=== PATIENT | male | born 1945 | race Caucasian/White ===

== ENCOUNTER → 2016-07-23 | Outpatient (CLI) | payer OTHER ==
[2016-07-23 10:09] LABS: ALT/SGPT 26 U/L (12-78); BLOOD UREA NITROGEN 16 mg/dl (7-18); BUN/CREATININE RATIO 17.2 (10-20); CARBON DIOXIDE 26 mmol/L (21-32); CHLORIDE 105 mmol/L (98-107); CHOLESTEROL 196 mg/dl (0-200); CREATININE 0.94 mg/dl (0.60-1.40); GLUCOSE 100 mg/dl (70-99); POTASSIUM 4.1 mmol/L (3.5-5.1); SODIUM 139 mmol/L (136-145); TRIGLYCERIDES 98 mg/dl (0-150); VERY LOW DENSITY LIPOPROT CALC 20 mg/dl
[2016-07-23 10:12] LABS: ALB/GLOB RATIO 1.1 (0.9-2); ALKALINE PHOSPHATASE 50 U/L (45-117); AST/SGOT 19 U/L (15-37); CHOLESTEROL/HDL RATIO 2.6; HDL CHOLESTEROL 74 mg/dl; LDL CHOLESTEROL CALCULATED 102 mg/dl
[2016-07-23 10:31] LABS: CALCIUM 9.6 mg/dl (8.5-10.1)
== END | disposition home or self-care (01) ==
LOC: C.LAB1850 08:33
PROVIDERS: ATTEND Internal Medicine
DX: R73.9 Hyperglycemia, unspecified (principal); E78.5 Hyperlipidemia, unspecified

== ENCOUNTER → 2017-01-22 | Outpatient (CLI) | payer OTHER, BC ==
[2017-01-22 11:04] LABS: ALT/SGPT 27 U/L (12-78); AST/SGOT 13 U/L (15-37); BLOOD UREA NITROGEN 16 mg/dl (7-18); BUN/CREATININE RATIO 18.2 (10-20); CALCIUM 8.5 mg/dl (8.5-10.1); CARBON DIOXIDE 29 mmol/L (21-32); CHLORIDE 104 mmol/L (98-107); CREATININE 0.86 mg/dl (0.60-1.40); GLUCOSE 100 mg/dl (70-99); POTASSIUM 3.9 mmol/L (3.5-5.1); SODIUM 135 mmol/L (136-145)
[2017-01-22 11:08] LABS: CHOLESTEROL 190 mg/dl (0-200); CHOLESTEROL/HDL RATIO 2.5; HDL CHOLESTEROL 77 mg/dl; LDL CHOLESTEROL CALCULATED 91 mg/dl; TRIGLYCERIDES 108 mg/dl (0-150); VERY LOW DENSITY LIPOPROT CALC 22 mg/dl
== END | disposition home or self-care (01) ==
LOC: C.LAB1850 09:35
PROVIDERS: ATTEND Internal Medicine
DX: Z00.00 Encounter for general adult medical examination without abnormal findings (principal); Z11.59 Encounter for screening for other viral diseases; E78.5 Hyperlipidemia, unspecified; I10 Essential (primary) hypertension; Z12.5 Encounter for screening for malignant neoplasm of prostate

== ENCOUNTER 2024-05-24 05:56 | Inpatient (IN) ==
--- NOTE | 2024-05-13 12:52 | Anesthesiology Consultation ---
Date of Service May 13, 2024 Assessment & Plan (1) Encounter for pre-operative examination: - Infectious disease screening: Per assessment on 05/13/24- No known recent infectious disease contacts or current infectious disease symptoms. - Preop testing: No recent/preop testing received. Will order CBC/BMP for DOS. Chart Review Chart Review: Acceptable Risk for Surgery (pending preop labs DOS) and Patient NOT seen in Pre Admission Testing History Surgery Operation Date: 05/24/24 07:30 Proposed Procedures p Robotic Navigational Bronchoscopy, - Isaak Short MD s Endobronchial Ultrasound - Isaak Short MD Height/Weight Height: 5 ft 8 in Weight: 61.235 kg Allergies Allergy/AdvReac Type Severity Reaction Status Date / Time house dust mite Allergy Mild Seasonal Verified 05/13/24 12:53 tree and shrub pollen Allergy Mild Seasonal Verified 05/13/24 12:53 wool Allergy Mild Nose runs Verified 05/13/24 12:53 Medications Home Medications Medication Instructions Recorded Confirmed Last Taken cholecalciferol (vitamin D3) 50 50 mcg PO QPM 09/05/20 05/13/24 09/08/21 mcg (2,000 unit) capsule Medical Marijuana 1 inh inhalation UD PRN hs 08/23/21 05/13/24 08/26/21 cyanocobalamin (vitamin B-12) 1,000 mcg PO QPM 09/02/21 05/13/24 09/08/21 1,000 mcg tablet omeprazole 20 mg capsule,delayed 20 mg PO QPM 09/02/21 05/13/24 09/08/21 release nitroglycerin 2 % transdermal 1 inch transdermal BID PRN pain 02/10/22 05/13/24 Unknown ointment toe #30 grams omega-3 fatty acids 1,000 mg 1,000 mg PO QAM 04/22/23 05/13/24 Unknown capsule psyllium husk 3.4 gram/5.4 gram 2 tsp PO DAILY 04/22/23 05/13/24 Unknown oral powder (Metamucil) naproxen 500 mg tablet 500 mg PO BID PRN pain #60 tabs 05/20/23 05/13/24 Unknown simvastatin 40 mg tablet 40 mg PO HS #90 tabs 06/08/23 05/13/24 Unknown aspirin 81 mg capsule 81 mg PO QAM 09/29/23 05/13/24 Unknown metronidazole 0.75 % topical cream 1 applic topical BID 01/28/24 05/13/24 Unknown amlodipine 2.5 mg tablet 2.5 mg PO QAM #90 tabs 02/15/24 05/13/24 Unknown fluticasone propionate 50 1 spray intranasal BID #18.2 mL 05/03/24 05/13/24 Unknown mcg/actuation nasal spray,suspension (Flonase Allergy Relief) levocetirizine 5 mg tablet (Xyzal) 5 mg PO QPM 05/13/24 05/13/24 Unknown pseudoephedrine HCl 60 mg tablet 60 mg PO Q6H PRN Cold Symptoms 05/13/24 05/13/24 Unknown Past Medical History Medical History Compression fracture of thoracic vertebra Lumbar MRI 09/2023: Redemonstration of the subacute compression fracture at T12 as described above Elevated PSA GERD (gastroesophageal reflux disease) History of prostate cancer s/p radiation tx Hyperlipidemia Hypertension Insomnia reason for medical marijuana Lung nodule reason for procedure Medical marijuana use Nasal drainage "chronic" Peripheral neuropathy Restless leg syndrome Past Family History Family History Aunt Colon cancer Brother Coronary heart disease Myocardial infarction Mother Family history of diabetes mellitus Coronary heart disease Father Coronary heart disease Brother Cancer Prostate Cancer Other No family history of adverse response to anesthesia Denies family history of Ovarian cancer Prostate cancer Breast cancer Past Surgical History Surgical History H/O prostate biopsy H/O: vasectomy History of carpal tunnel release right History of colonoscopy History of nasal cauterization as child Hx of tonsillectomy [place] teeth extracted Social History Smoking Status: Former smoker Do You Dip or Chew Tobacco: No Smoking End Date: "in my 30's" Hx Alcohol Use: Yes Alcohol type: beer and wine alcohol intake frequency: 0-2 drinks per day Alcohol Intake Frequency Comment: 3 pints of beer daily Hx Substance Use: Yes substance use type: marijuana (medical card) Testing Electrocardiogram Date: 08/03/23 SR with first degree AVB with PACs at 79bpm. "Otherwise normal ECG" Other Testing Chest CT Date: 04/25/24 IMPRESSION: 1. Emphysema with slightly increased size of the two suspicious pulmonary nodules involving the upper lobes, largest of which now measures 1.3 cm. Primary bronchogenic malignancies remains the primary differential consideration. 2. No lymphadenopathy.
[2024-05-24] MEDS ORDERED: NALOXONE HCL 0.4 MG/1 ML VIAL/CARP IV PRN (06:46)
[2024-05-24] MEDS ORDERED: PROMETHAZINE HCL 6.25 MG in SODIUM CHLORIDE 0.9% 50 ML IV PRN (06:46)
[2024-05-24] MEDS ORDERED: fentaNYL citrate PF 100 MCG/2 ML VIAL IV PRN (06:46)
[2024-05-24] MEDS ORDERED: FLUMAZENIL 0.1 MG/1 ML 10 ML VIAL IV PRN (06:46)
[2024-05-24] MEDS ORDERED: LABETALOL HCL IV 5 MG/ML 20ML IV PRN (06:46)
[2024-05-24] MEDS ORDERED: ATROPINE SULFATE 0.1 MG/ML 10ML SYR IV PRN (06:46)
[2024-05-24] MEDS ORDERED: ePHEDrine sulfate 50 MG/ML AMP IV PRN (06:46)
[2024-05-24] MEDS ORDERED: ONDANSETRON INJ 2 MG/ML 2 ML VIAL IV PRN ×2 (06:46→12:37)
[2024-05-24 06:47] LABS: Basophils # (auto) 0.05 K/uL (0.00-0.20); Basophils % (auto) 0.6 %; Eosinophils # (auto) 0.07 K/uL (0.00-0.50); Eosinophils % (auto) 0.8 %; Hematocrit (blood only) 45.3 % (42.0-52.0); Hemoglobin 15.2 g/dl (14.0-18.0); Immature Granulocytes # (auto) 0.04 K/uL (0.01-0.20); Immature Granulocytes % (auto) 0.4 %; Lymphocytes # (auto) 1.61 K/uL (1.20-3.40); Lymphocytes % (auto) 18.1 %; Mean Corpuscular Hemoglobin 32.1 pg (25.0-34.0); Mean Corpuscular Hgb Conc 33.6 g/dL (32.0-36.0); Mean Corpuscular Volume 95.6 fL (80.0-100.0); Mean Platelet Volume 9.3 fL (9.4-12.4); Monocytes # (auto) 0.63 K/uL (0.11-0.59); Monocytes % (auto) 7.1 %; Platelet Count 319 K/uL (130-400); RDW Coefficient of Variation 12.1 % (11.5-14.5); RDW Standard Deviation 42.9 fL (36.4-46.3); Red Blood Count 4.74 M/uL (4.70-6.10)
--- NOTE | 2024-05-24 06:53 | History & Physical Bridge Note ---
Date of Service May 24, 2024 History & Physical Bridge Note I have examined the patient, reviewed the History & Physical and in the interval since the performance of the History & Physical I have noted the following changes of clinical significance: no changes noted
[2024-05-24 07:02] LABS: BUN Creatinine Ratio 18.4 (10-20); Calcium 9.1 mg/dl (8.6-10.3); Creatinine Clr Calc Pharmacy 69.5 ml/min; Potassium 3.9 mmol/L (3.5-5.1)
[2024-05-24] MEDS ORDERED: PROPOFOL IV EMULSION 10 MG/ML 20 ML VIAL IV ONE ×2 (07:02→08:54)
[2024-05-24] MEDS ORDERED: fentaNYL citrate PF 100 MCG/2 ML VIAL ONE (07:04)
[2024-05-24] MEDS ORDERED: MIDAZOLAM HCL 1 MG/ML 2ML VIAL ONE (07:05)
[2024-05-24] MEDS: LACTATED RINGER'S 1,000 ML IV SCH (07:06)
[2024-05-24] MEDS ORDERED: CISATRACURIUM BESYLATE IV SOLN 2 MG/ML 10 ML VIAL IV ONE (07:09)
[2024-05-24] MEDS ORDERED: PHENYLEPHRINE 100MCG/ML 5ML SYR ONE (08:54)
[2024-05-24] MEDS ORDERED: ePHEDrine sulfate 50 MG/5 ML SYR ONE (08:54)
[2024-05-24] MEDS ORDERED: GLYCOPYRROLATE 0.2 MG/ML VIAL ONE (09:54)
[2024-05-24] MEDS ORDERED: NEOSTIGMINE METHYLSULFATE 1 MG/ML 10ML VIAL ONE (09:54)
--- NOTE | 2024-05-24 10:11 | Procedure Note ---
Procedure Note Date of Service May 24, 2024 Procedure: Fiberoptic bronchoscopy Electromagnetic navigational bronchoscopy with fluoroscopic guidance Electromagnetic navigational bronchoscopy with transbronchial biopsies under fluoroscopic guidance, 2 nodules Electromagnetic navigational bronchoscopy with fine-needle aspiration under fluoroscopic guidance, 2 nodules Provider: Isaak Short MD Indication: Enlarging pulmonary nodules in a patient with history of prostate cancer Consent: Signed by patient and timeout verified prior to procedure. Procedure: Patient was brought to the OR suite. Consent was verified. Appropriate radiographic studies had been reviewed prior to the procedure. General anesthesia was initiated by the anesthesia team and the patient was intubated with an 8.0 endotracheal tube. After initiation of general anesthesia, the fiberoptic scope was advanced through the existing endotracheal tube via the adapter. The tube was sounded. It was withdrawn to approximately 5 or 6 cm above the arleen and secured in place. A systematic inspection of the airways was then conducted. The right tracheobronchial tree was normal in anatomic configuration with normal mucosa. Left tracheobronchial tree also demonstrated a normal anatomic configuration with normal mucosa. No endobronchial lesions were identified. The fiberoptic scope was then removed. The robotic adapter was then secured to the endotracheal tube and secured using the flexible arm attached to the bed. The patient had previously been placed on a bed with an electromagnetic navigation field and a tilt table in place. The robot was advanced to the head of the bed and the robotic arm was docked to the endotracheal tube via the robotic adapter. Robot arm was withdrawn in normal fashion and the scope attached with the antibuckling device. The robotic scope was then maneuvered into the endotracheal tube where controller registration took place. Once that was confirmed the scope was advanced to the main arleen and verified in good position. Navigational registration was then conducted without difficulty. Once registration was completed, the robotic bronchoscope was used to navigate to the left upper lobe pulmonary nodule. Once the scope was approximately 30 mm from the lesion, a fluoroscopic tomographic spin was conducted with reconstruction of images. The lesion was able to be verified on the tomogram. It was marked and additional navigation was conducted under direct fluoroscopic guidance with augmented fluoroscopy. Once the scope was appropriately angled towards the lesion, under direct fluoroscopic guidance, the radial ultrasound probe was advanced through the scope. An eccentric view was identified. Radial probe was removed and a 21-gauge JORDAN view needle was advanced through the scope and directed to the lesion using augmented fluoroscopy. With the needle extended, a repeat tomographic spin was conducted confirming the tip of the tool to be within the lesion. 2 needle biopsies were undertaken. We then transition to forceps biopsies and a total of 6 biopsies were taken. 3 cryobiopsies were also taken. Rapid onsite cytologic evaluation did identify one cluster of abnormal cells. Decision was made to proceed to the right upper lobe lesion. The scope was na vigated to the lesion using electromagnetic navigational capabilities. This lesion was very difficult as the angle from the airway was quite acute. Multiple manipulations of the scope were required to try and get an appropriate view. The lesion was identified on tomographic spin and marked. A JORDAN view needle was unable to be advanced and we transition to an arc point needle which we were able to enter the lesion. 2 needle passes were taken. Rapid onsite cytologic evaluation demonstrated no significant concerning cells. We transitioned then to cryobiopsy and a total of 3 biopsies were taken of that lesion. Rapid onsite cytologic evaluation did not show any significant malignant cells. Await final pathology. The scope was then withdrawn to the tip of the endotracheal tube and hemostasis was confirmed. Scope was removed from the airway. The patient was turned over to anesthesia for extubation and returned to the PACU having tolerated the procedure well without complication. EBL: Less than 10 ml Impression: 1. Normal inspection bronchoscopy. 2. Successful electromagnetic robotic navigation to both a 10 mm left upper lobe and 12 mm right upper lobe pulmonary nodule status post FNA biopsy/cryobiopsy. Await final path [facility] [place] Procedure Codes (Charges) Pulmonary/Thoracic Procedure 1: Pulmonary and Thoracic: 73336 Navigational Bronchoscopy Procedure 2: Pulmonary and Thoracic: 75293 Bronchoscopy w/ needle bx Procedure 3: Pulmonary and Thoracic: 28933 Bronch w needle bx add'l lobe Procedure 4: Pulmonary and Thoracic: 12547 Bronchoscopy w/ transbronchial lung bx Procedure 5: Pulmonary and Thoracic: 09531 Bronchoscopy w/ transbronchial lung bx add'l lobe Coding CPT Codes Pulmonary/Thoracic - Pulmonary and Thoracic: 23699 Navigational Bronchoscopy ([id number]) Pulmonary/Thoracic - Pulmonary and Thoracic: 90039 Bronchoscopy w/ needle bx ([id number]) Pulmonary/Thoracic - Pulmonary and Thoracic: 68116 Bronch w needle bx add'l lobe ([id number]) Pulmonary/Thoracic - Pulmonary and Thoracic: 97927 Bronchoscopy w/ transbronchial lung bx ([id number]) Pulmonary/Thoracic - Pulmonary and Thoracic: 49062 Bronchoscopy w/ transbronchial lung bx add'l lobe ([id number]) Additional Codes Date of Service ([facility].SURGERY)
--- NOTE | 2024-05-24 10:39 | XRay Report ---
XR chest 1V portable HISTORY: 78 years-old Male Post Bronchoscopy COMPARISON: PET/CT 05/17/2024 TECHNIQUE: AP view of the chest FINDINGS: Large left-sided pneumothorax, apical pleural separation of 8 cm. Skinfold projects over the right tim ng apex. Heart is mildly enlarged. Bilateral mixed interstitial and alveolar opacities are noted. No pleural effusion or overt pulmonary edema. Chronic right-sided rib fracture. IMPRESSION: 1. Large left-sided pneumothorax with 8 cm pleural separation. No definite midline shift. 2. Nonspecific bilateral mixed interstitial and alveolar opacities. This was made as a call report at time of dictation. ACT 112: Negative or not required by law. The above report was generated using voice recognition software. It may contain grammatical, syntax o r spelling errors. Electronically signed by: Aries Walker M.D. 05/24/2024 10:38 AM
[2024-05-24] MEDS ORDERED: KETOROLAC TROMETHAMINE 15 MG/ML VIAL IV PRN (10:49)
--- NOTE | 2024-05-24 11:24 | History & Physical Report ---
Date of Service May 24, 2024 Assessment & Plan (1) Pneumothorax, left: Plan: Colby is a 78-year-old male with a past medical history of a pulmonary nodule for which he presented for bronchoscopy and biopsy, hypertension/hyperlipidemia without history of CAD/CVA/CHF, no history of renal disease, prostate cancer s/p radiation on medical marijuana for some residual discomfort but without recurrent LUTS symptoms, GERD,who is admitted for L pneumothorax post bronch/b iopsy. Left-sided pneumothorax Post bronchoscopy/biopsy. CXR 8 cm pleural separation without midline shift Post chest tube placement is with reexpansion of left lung with tiny residual pneumothorax, pleural catheter in place. Suction versus waterseal per pulmonar No airleak on tidal volumes, slight air leak on cough Admitted for monitoring overnight. Multimodal pain control, Tylenol, Toradol, morphine for breakthrough SpO2 greater than 90% on 2 L nasal cannula Pulmonology following 2 mm left upper lobe, 12 mm right upper lobe pulmonary nodules S/p bronchoscopy and FNA biopsy Pathology pending Pulmonary following Hypertension Home antihypertensives continued Aspirin held post chest tube placement and biopsies. He is on this for primary prevention without history of CAD/CVA History of prostate cancer s/p radiation Bladder scan as needed No acute change in symptoms, no recent LUTS Hyperlipidemia Continue statin DVT prophylaxis: SCDs, if no bleeding complications after 12-24 hours start chemical prophylaxis Diet: Swallow eval postanesthesia, if doing well may advance to heart healthy CODE STATUS: Full code Disposition: M/T (2) Hyperlipidemia: (3) Hyperglycemia: (4) Gastroesophageal reflux disease: History of Present Illness Primary Care Provider: Gary Wells MD Colby is a 78-year-old male with a past medical history of a pulmonary nodule for which he presented for bronchoscopy and biopsy, hypertension/hyperlipidemia without history of CAD/CVA/CHF, no history of renal disease, prostate cancer s/p radiation on medical marijuana for some residual discomfort but without recurrent LUTS symptoms, GERD,who is admitted for L pneumothorax. Seen in PACU. s/p robotic bronchoscopy and nodule biopsy. Admitted for monitoring post chest tube placement for associated left sided pneumo. At bedside recovering well from anesthesia. He reports he has some slight pain at the chest tube site noticeable slightly with deep inspiration but otherwise pain is well-controlled. No anterior chest pain. No preceding chest pain prior to his procedure. Denies fever chills or sweats. He endorses some minimal dyspnea but notes this is more a feeling of discomfort from the pain when taking a deep breath. He is not dyspneic with normal breaths. No lightheadedness or dizziness. No abdominal pain. Has a slight cough nonproductive and denies hemoptysis. Meds: - Amlodipine, took this AM - Simvastatin for cholesterol - Xyzal for allergies - Aspirin 81mg, did not take this morning. Takes this for primary prevention. No history of VT or CVA. No history of VT, DM2, CKD, CVA Denies medication allergies No tobacco use currently. Former smoker in 20-30s. 1ppd ~10 years total Medical marijuana use. No recreational drug use Hx prostate cancer post radiation. No difficulty with retention. Uses medical marijuana since which works well for minimal discomfort Intermittent hyperglycemia with last A1c 5.4% and no history of DM presented for bronchoscopy and was admitted for observation following a left sided pneumothorax. Surrogate DM: Jacki Willson) Sarina [phone] CODE STATUS: Full Code. Discussed w/ pt at bedside in PACU. Reports would not want prolonged intubation past 7 days if no signs of significant recovery or return of ability to communicate. Allergies Allergy/AdvReac Type Severity Reaction Status Date / Time house dust mite Allergy Mild Seasonal Verified 05/24/24 06:40 tree and shrub pollen Allergy Mild Seasonal Verified 05/24/24 06:40 wool Allergy Mild Nose runs Verified 05/24/24 06:40 Home Medications Medication Instructions Recorded Confirmed Type cholecalciferol (vitamin D3) 50 50 mcg PO QPM 09/05/20 05/24/24 History mcg (2,000 unit) capsule Medical Marijuana 1 inh inhalation UD PRN hs 08/23/21 05/24/24 History cyanocobalamin (vitamin B-12) 1,000 mcg PO QPM 09/02/21 05/24/24 History 1,000 mcg tablet omeprazole 20 mg capsule,delayed 20 mg PO QPM 09/02/21 05/24/24 History release nitroglycerin 2 % transdermal 1 inch transdermal BID PRN pain 02/10/22 05/24/24 Rx ointment toe #30 grams omega-3 fatty acids 1,000 mg 1,000 mg PO QAM 04/22/23 05/24/24 History capsule psyllium husk 3.4 gram/5.4 gram 2 tsp PO DAILY 04/22/23 05/24/24 History oral powder (Metamucil) naproxen 500 mg tablet 500 mg PO BID PRN pain #60 tabs 05/20/23 05/24/24 Rx simvastatin 40 mg tablet 40 mg PO HS #90 tabs 06/08/23 05/24/24 Rx aspirin 81 mg capsule 81 mg PO QAM 09/29/23 05/24/24 History metronidazole 0.75 % topical cream 1 applic topical BID 01/28/24 05/24/24 History amlodipine 2.5 mg tablet 2.5 mg PO QAM #90 tabs 02/15/24 05/24/24 Rx fluticasone propionate 50 1 spray intranasal BID #18.2 mL 05/03/24 05/24/24 Rx mcg/actuation nasal spray,suspension (Flonase Allergy Relief) levocetirizine 5 mg tablet (Xyzal) 5 mg PO QPM 05/13/24 05/24/24 History pseudoephedrine HCl 60 mg tablet 60 mg PO Q6H PRN Cold Symptoms 05/13/24 05/24/24 History Past Med/Surg History Problem List (Updated 05/24/24 @ 11:48 by Ezequiel Lanier MD) Pneumothorax, left Coronary artery calcification Compression fracture of T12 vertebra with routine healing Pulmonary nodule Current use of proton pump inhibitor Rectal bleeding Hemorrhoids Encounter for pre-operative examination Numbness of right hand Prostate cancer (Chronic 08/07/20) Rising PSA level Vitamin D deficiency Peripheral neuropathy Hypertension Hyperlipidemia Hyperglycemia Gastroesophageal reflux disease Medical History Nasal drainage Compression fracture of thoracic vertebra Elevated PSA GERD (gastroesophageal reflux disease) Restless leg syndrome Peripheral neuropathy Hypertension Hyperlipidemia Lung nodule Medical marijuana use History of prostate cancer Insomnia Surgical History History of carpal tunnel release History of colonoscopy History of nasal cauterization [place] teeth extracted H/O prostate biopsy H/O: vasectomy Hx of tonsillectomy Family History Aunt Colon cancer Brother Coronary heart disease Myocardial infarction Mother Family history of diabetes mellitus Coronary heart disease Father Coronary heart disease Brother Cancer Other No family history of adverse response to anesthesia Denies family history of Ovarian cancer Prostate cancer Breast cancer Social History Smoking Status: Former smoker Tobacco Type: Cigarettes Smoking End Date: "in my 30's"; Second Hand Exposure: Yes (in the past, used to smoke); Do You Dip or Chew Tobacco: No; Hx Alcohol Use: Yes Alcohol type: beer and wine Alcohol Intake Frequency: 4 or More x per/Week Hx Substance Use: Yes Prescribed Medications: Marijuana Substance Use Type Other:: medical card Preferred Language: Kazakh Communication Ability: Effective Visual Impairment: No Limitations Hearing Ability: Normal Fabric Finisher Required: No Beliefs That Will Affect Care: None marital status: Current Living Situation: Spouse current occupational status: retired Feels Safe at Home: Yes Safety Concerns: Feels Safe At This Time Diet: regular caffeine: Yes during the past year weight has: remained stable Physical Activity Frequency: Daily Seatbelt Use: always Assistive Devices: Glasses Physical Exam Physical Exam: General: A&Ox3. NAD. Cooperative. Awakening from anesthesia but is alert, does not appear somnolent, answers questions appropriately with a linear thought process HEENT: Atraumatic, normocephalic. Vision and hearing grossly intact Pulm: CTAB A&P. -wheezes, -rales, -rhonchi. Symmetrical chest rise. No increased work of breathing. No respiratory distress. On 2 L nasal cannula. Left-sided anterior catheter in place. No airleak on tidal volume, slight air leak on cough Cardiac: RRR, -mrg. Radial pulses intact and symmetrical. Abdominal: Nontender, nondistended, soft. BS present. Extremities: Warm, dry. Was all extremities equally. Sensation intact in hands and feet Results & Data Results & Data Vital Signs (Past 12 Hours) Vital Signs Temp Pulse Pulse Resp BP Pulse Ox O2 Del Method 05/24/24 11:10 72 16 110/68 94 Room Air 05/24/24 11:00 64 16 120/59 L 98 Oxymask 05/24/24 10:50 63 16 133/83 98 Oxymask 05/24/24 10:40 72 18 134/67 93 Oxymask 05/24/24 10:30 67 18 124/74 95 Oxymask 05/24/24 10:20 81 21 114/80 95 Oxymask 05/24/24 10:10 36 C L 89 21 114/96 96 Oxymask 05/24/24 06:22 36.8 C 71 16 175/83 H 95 Room Air O2 Flow Rate 05/24/24 11:10 05/24/24 11:00 3 05/24/24 10:50 3 05/24/24 10:40 3 05/24/24 10:30 3 05/24/24 10:20 6 05/24/24 10:10 6 05/24/24 06:22 PG Care Time/CCT Total # of Minutes Spent Total Time Spent with Patient: Total time spent is greater than 50% in coordination of care (as documented) at patient's floor/unit and/or counseling patient: Coding Level of Care Code 70703 INT INP/OBS CARE 375MIN Diagnoses Pneumothorax, left J93.9 Hyperlipidemia E78.5 Hyperglycemia R73.9 Gastroesophageal reflux disease K21.9
--- NOTE | 2024-05-24 11:39 | XRay Report ---
XR chest 1V portable HISTORY: 78 years-old Male post CT L COMPARISON: Chest X-ray of same day at 10:11 AM TECHNIQUE: AP view of the chest FINDINGS: Status post placement of a left-sided pigtail pleural catheter, distal tip projects at the lateral le ft midlung. There is reexpansion of the left lung with only a trace pneumothorax now present, pleural separation of 2 mm. Interstitial coarsening. Right midlung predominant airspace opacities with ill-d efined left upper lung airspace density.. No pleural effusion or overt pulmonary edema. IMPRESSION: 1. Reexpansion of the left lung status post placement of a pleural catheter with tiny residual pneumo thorax. 2. Interstitial coarsening with right mid lung and left apical predominant airspace opacities are aga in noted. ACT 112: Negative or not required by law. The above report was generated using voice recognition software. It may contain grammatical, syntax o r spelling errors. Electronically signed by: Aries Walker M.D. 05/24/2024 11:38 AM
--- NOTE | 2024-05-24 12:08 | Procedure Note ---
Procedure Note Date of Service May 24, 2024 Procedure: 14 Congolese pigtail catheter placement, left Indication: Secondary pneumothorax status post lung biopsy Consent risk and benefits were discussed with the patient. He agreed. Written consent was verified prior to commencement of the procedure. Black Leather Trimmer Dr. Short Estimated blood loss: Less than 5 mL Anesthesia: 5 mL 1% lidocaine without epinephrine locally. Procedure: The patient underwent robotic navigational bronchoscopy earlier today for enlarging pulmonary nodule suspicious for metastatic prostate cancer. Post procedure and x-ray demonstrated a large pneumothorax on the left. The patient had been consented to undergo chest tube in the event he sustained a pneumothorax prior to the procedure. The patient was placed in a semiupright seated position. The infraclavicular space in the midclavicular line on the left was cleansed using chlorhexidine and a sterile field established. An area approximately 2 cm below the clavicle in the midclavicular line was anesthetized with lidocaine. The muscle and deeper soft tissues were anesthetized using a finder needle. With the finder needle I was able to aspirate air. The finder needle was then withdrawn. A small skin tr was made with a scalpel. An 18-gauge needle was then advanced on a similar line until I was able to aspirate air. The syringe was withdrawn leaving the needle in place. A wire was passed through the needle and then the needle was withdrawn leaving the wire in the pleural space. A 14 Congolese dilator was then passed over the wire to dilate the skin and soft tissues. This passed with ease. The dilator was removed leaving the wire in place. A 14 Congolese pigtail catheter was then loaded on a straightening catheter and advanced over the wire into the pleural space. The straightening catheter and wire were removed leaving the pigtail catheter in place. A three-way stopcock was attached. The tube was attached to suction with a brisk air leak which resolved after about 20 seconds. A skater catheter fixation system was attached to the chest wall and the catheter secured. Catheter was attached to suction at 20 cm of water. Post procedure chest x-ray is pending. The patient tolerated the procedure well. [facility] [place] Procedure Codes (Charges) Pulmonary/Thoracic Procedure 1: Pulmonary and Thoracic: 44293 Tube thoracostomy Coding CPT Codes Pulmonary/Thoracic - Pulmonary and Thoracic: 33313 Tube thoracostomy ([id number]) Additional Codes Date of Service (PG.SURGERY)
--- NOTE | 2024-05-24 12:30 | Anesthesiology Progress Note ---
Date of Service May 24, 2024 Anesthesia Post Procedure Vital Signs Vital Signs: Temp Pulse Pulse Resp BP Pulse Ox O2 Del Method 05/24/24 12:00 62 13 129/66 98 Nasal Cannula 05/24/24 11:45 63 16 114/58 L 97 Nasal Cannula 05/24/24 11:30 36.4 C L 69 16 136/66 98 Nasal Cannula 05/24/24 11:20 73 16 124/69 99 Nasal Cannula 05/24/24 11:10 72 16 110/68 94 Room Air 05/24/24 11:00 64 16 120/59 L 98 Oxymask 05/24/24 10:50 63 16 133/83 98 Oxymask 05/24/24 10:40 72 18 134/67 93 Oxymask 05/24/24 10:30 67 18 124/74 95 Oxymask 05/24/24 10:20 81 21 114/80 95 Oxymask 05/24/24 10:10 36 C L 89 21 114/96 96 Oxymask 05/24/24 06:22 36.8 C 71 16 175/83 H 95 Room Air O2 Flow Rate 05/24/24 12:00 2 05/24/24 11:45 2 05/24/24 11:30 2 05/24/24 11:20 2 05/24/24 11:10 05/24/24 11:00 3 05/24/24 10:50 3 05/24/24 10:40 3 05/24/24 10:30 3 05/24/24 10:20 6 05/24/24 10:10 6 05/24/24 06:22 Pain Intensity Left Axilla: Pain Intensity: 2 Transfer of Care Handoff Completed per policy Notes Mental Status: alert / awake / arousable Patient Amnestic to Procedure: Yes Nausea / Vomiting: adequately controlled Pain: adequately controlled Airway Patency, RR, SpO2: see Notes below (Pt w/ B/L pneumothoraces requiring chest tube w/c was performed by Dr Short. Pt stable and transferred to ICU.) BP & HR: stable & adequate Hydration State: stable & adequate Anesthetic Complications: no major complications apparent
--- NOTE | 2024-05-24 12:32 | Pulmonary Consultation ---
Date of Consultation May 24, 2024 Assessment & Plan (1) Pneumothorax, left: Patient's status post robotic navigational bronchoscopy with a left-sided pneumothorax post procedure. Pigtail catheter in place and currently to waterseal. Patient relatively asymptomatic. Repeat x-ray at 4 PM today and if no evidence of pneumothorax, will clamp chest tube and repeat x-ray tomorrow morning. If no pneumo identified tomorrow, will remove pigtail and the patient can be safely discharged home. (2) Multiple pulmonary nodules determined by computed tomography of lung: Status post robotic navigational bronchoscopy with sampling of the left upper and right upper lobe lung nodules which revealed PET avid. Nodules are currently indeterminate, but suspicious in light of the patient's remote smoking history and history of prostate cancer. Anticipate biopsy results to be available in the next 48 to 72 hours. Plan Care coordinated with the proceduralist, bedside RN and hospitalist service. Thank you for the consult. Please call questions. History of Present Illness Reason for Consultation: Status post left-sided pigtail placement for iatrogenic pneumothorax Attending Physician: Isaak Short MD History of Present Illness 78-year-old male with a remote smoking history and history of prostate cancer who presented today for an elective robotic navigational bronchoscopy and underwent biopsy of a left upper and right upper lobe lung nodule which was PET avid. Status post bronchoscopy underwent a routine chest x-ray was found to have a large left-sided pneumothorax. He had mild dyspnea status post procedure. Dr. Short who performed the bronchoscopy inserted a small 14 [place] pigtail catheter in the left apex with resolution of the pneumothorax. He is currently on waterseal with no evidence of air leak. He has no significant complaints at present aside from mild pleurisy upon deep inspiration. Allergies Allergy/AdvReac Type Severity Reaction Status Date / Time house dust mite Allergy Mild Seasonal Verified 05/24/24 06:40 tree and shrub pollen Allergy Mild Seasonal Verified 05/24/24 06:40 wool Allergy Mild Nose runs Verified 05/24/24 06:40 Home Medications Medication Instructions Recorded Confirmed Type cholecalciferol (vitamin D3) 50 50 mcg PO QPM 09/05/20 05/24/24 History mcg (2,000 unit) capsule Medical Marijuana 1 inh inhalation UD PRN hs 08/23/21 05/24/24 History cyanocobalamin (vitamin B-12) 1,000 mcg PO QPM 09/02/21 05/24/24 History 1,000 mcg tablet omeprazole 20 mg capsule,delayed 20 mg PO QPM 09/02/21 05/24/24 History release nitroglycerin 2 % transdermal 1 inch transdermal BID PRN pain 02/10/22 05/24/24 Rx ointment toe #30 grams omega-3 fatty acids 1,000 mg 1,000 mg PO QAM 04/22/23 05/24/24 History capsule psyllium husk 3.4 gram/5.4 gram 2 tsp PO DAILY 04/22/23 05/24/24 History oral powder (Metamucil) naproxen 500 mg tablet 500 mg PO BID PRN pain #60 tabs 05/20/23 05/24/24 Rx simvastatin 40 mg tablet 40 mg PO HS #90 tabs 06/08/23 05/24/24 Rx aspirin 81 mg capsule 81 mg PO QAM 09/29/23 05/24/24 History metronidazole 0.75 % topical cream 1 applic topical BID 01/28/24 05/24/24 History amlodipine 2.5 mg tablet 2.5 mg PO QAM #90 tabs 02/15/24 05/24/24 Rx fluticasone propionate 50 1 spray intranasal BID #18.2 mL 05/03/24 05/24/24 Rx mcg/actuation nasal spray,suspension (Flonase Allergy Relief) levocetirizine 5 mg tablet (Xyzal) 5 mg PO QPM 05/13/24 05/24/24 History pseudoephedrine HCl 60 mg tablet 60 mg PO Q6H PRN Cold Symptoms 05/13/24 05/24/24 History Patient History Medical History Nasal drainage Compression fracture of thoracic vertebra Elevated PSA GERD (gastroesophageal reflux disease) Restless leg syndrome Peripheral neuropathy Hypertension Hyperlipidemia Lung nodule Medical marijuana use History of prostate cancer Insomnia Surgical History History of carpal tunnel release History of colonoscopy History of nasal cauterization [place] teeth extracted H/O prostate biopsy H/O: vasectomy Hx of tonsillectomy Family History Aunt Colon cancer Brother Coronary heart disease Myocardial infarction Mother Family history of diabetes mellitus Coronary heart disease Father Coronary heart disease Brother Cancer Other No family history of adverse response to anesthesia Denies family history of Ovarian cancer Prostate cancer Breast cancer Social History Smoking Status: Former smoker Tobacco Type: Cigarettes Smoking End Date: "in my 30's"; Second Hand Exposure: Yes (in the past, used to smoke); Do You Dip or Chew Tobacco: No; Hx Alcohol Use: Yes Alcohol type: beer and wine Alcohol Intake Frequency: 4 or More x per/Week Hx Substance Use: Yes Prescribed Medications: Marijuana Substance Use Type Other:: medical card Preferred Language: [place]olan Communication Ability: Effective Visual Impairment: No Limitations Hearing Ability: Normal 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 Beliefs That Will Affect Care: None marital status: Current Living Situation: Spouse current occupational status: retired Feels Safe at Home: Yes Safety Concerns: Feels Safe At This Time Diet: regular caffeine: Yes during the past year weight has: remained stable Physical Activity Frequency: Daily Seatbelt Use: always Assistive Devices: Glasses Review of Systems Review of Systems: All systems reviewed & are unremarkable except as noted in HPI & below Physical Exam Constitutional: WD/WN, vitals as above Neck: trachea midline, no thyromegaly Respiratory: normal respiratory effort, lungs clear to auscultation Cardiovascular: RRR, no murmur, no edema Gastrointestinal (Abdomen): normal bowel sounds, soft, nontender, no hepatosplenomegaly Musculoskeletal: Extremities: extremities normal to inspection Skin: no rashes, warm and dry Neurologic: Nonfocal exam Lymphatic: no cervical lymphadenopathy Results & Data Results & Data Vital Signs (Past 12 Hours) Vital Signs Temp Pulse Pulse Resp BP Pulse Ox O2 Del Method 05/24/24 12:00 62 13 129/66 98 Nasal Cannula 05/24/24 11:45 63 16 114/58 L 97 Nasal Cannula 05/24/24 11:30 36.4 C L 69 16 136/66 98 Nasal Cannula 05/24/24 11:20 73 16 124/69 99 Nasal Cannula 05/24/24 11:10 72 16 110/68 94 Room Air 05/24/24 11:00 64 16 120/59 L 98 Oxymask 05/24/24 10:50 63 16 133/83 98 Oxymask 05/24/24 10:40 72 18 134/67 93 Oxymask 05/24/24 10:30 67 18 124/74 95 Oxymask 05/24/24 10:20 81 21 114/80 95 Oxymask 05/24/24 10:10 36 C L 89 21 114/96 96 Oxymask 05/24/24 06:22 36.8 C 71 16 175/83 H 95 Room Air O2 Flow Rate 05/24/24 12:00 2 05/24/24 11:45 2 05/24/24 11:30 2 05/24/24 11:20 2 05/24/24 11:10 05/24/24 11:00 3 05/24/24 10:50 3 05/24/24 10:40 3 05/24/24 10:30 3 05/24/24 10:20 6 05/24/24 10:10 6 05/24/24 06:22 PG Care Time/CCT Total # of Minutes Spent Total Time Spent with Patient: Total time spent is greater than 50% in coordination of care (as documented) at patient's floor/unit and/or counseling patient: Coding Level of Care Code 60323 INT INP/OBS CARE MIN Diagnoses Pneumothorax, left J93.9 Multiple pulmonary nodules determined by computed tomography of lung R91.8
[2024-05-24] MEDS ORDERED: ACETAMINOPHEN 325 MG TAB PO PRN (12:37)
[2024-05-24] MEDS ORDERED: MoRPHine SULFATE 2 MG/ML CARP IV PRN (12:37)
--- NOTE | 2024-05-24 15:30 | XRay Report ---
XR chest 1V portable HISTORY: 78 years-old Male follow up ptx COMPARISON: 11:02 AM TECHNIQUE: AP view of the chest FINDINGS: Redemonstration of a left-sided pigtail pleural catheter, distal tip projects at the lateral left mid lung. Unchanged 2 mm left sided pneumothorax. Interstitial coarsening. Right midlung predominant airs pace opacities with ill-defined left upper lung airspace density appears unchanged. No pleural effusi on or overt pulmonary edema. IMPRESSION: 1. Stable positioning of the left-sided pleural catheter with trace persistent left-sided pneumothora x. 2. Interstitial coarsening with ill-defined right suprahilar and left upper lung opacities redemonstr ated. ACT 112: Negative or not required by law. The above report was generated using voice recognition software. It may contain grammatical, syntax o r spelling errors. Electronically signed by: Aries Walker M.D. 05/24/2024 3:29 PM
[2024-05-24] MEDS: CHOLECALCIFEROL 25 MCG (1000 UNITS) TAB PO SCH (20:29)
[2024-05-24] MEDS: SIMVASTATIN 40 MG TAB PO SCH (20:29)
[2024-05-24] MEDS: PANTOprazole 40 MG TAB PO SCH (20:30)
[2024-05-24] MEDS: CETIRIZINE HCL 10 MG TABLET PO SCH (20:30)
[2024-05-24] MEDS: CYANOCOBALAMIN (B-12) 500 MCG TABLET PO SCH (20:30)
[2024-05-25 06:33] LABS: Basophils # (auto) 0.03 K/uL (0.00-0.20); Basophils % (auto) 0.3 %; Eosinophils # (auto) 0.02 K/uL (0.00-0.50); Eosinophils % (auto) 0.2 %; Hematocrit (blood only) 41.6 % (42.0-52.0); Hemoglobin 14.4 g/dl (14.0-18.0); Immature Granulocytes # (auto) 0.03 K/uL (0.01-0.20); Immature Granulocytes % (auto) 0.3 %; Lymphocytes # (auto) 1.08 K/uL (1.20-3.40); Lymphocytes % (auto) 9.7 %; Mean Corpuscular Hemoglobin 32.6 pg (25.0-34.0); Mean Corpuscular Hgb Conc 34.6 g/dL (32.0-36.0); Mean Corpuscular Volume 94.1 fL (80.0-100.0); Mean Platelet Volume 9.6 fL (9.4-12.4); Monocytes # (auto) 0.64 K/uL (0.11-0.59); Monocytes % (auto) 5.7 %; Neutrophils # (auto) 9.35 K/uL (1.40-6.50); Neutrophils % (auto) 83.8 %; Platelet Count 298 K/uL (130-400); RDW Coefficient of Variation 11.9 % (11.5-14.5); RDW Standard Deviation 41.9 fL (36.4-46.3); Red Blood Count 4.42 M/uL (4.70-6.10); White Blood Count 11.15 K/ul (4.8-10.8)
[2024-05-25 06:39] LABS: BUN Creatinine Ratio 16.2 (10-20); Calcium 8.7 mg/dl (8.6-10.3); Creatinine Clr Calc Pharmacy 75.4 ml/min; Potassium 4.1 mmol/L (3.5-5.1)
[2024-05-25] MEDS: OMEGA-3 (PURIFIED FISH OIL) 1 GM CAP PO SCH (07:47)
[2024-05-25] MEDS: amLODIPine BESYLATE 5 MG TAB PO SCH (07:47)
--- NOTE | 2024-05-25 07:47 | XRay Report ---
EXAM: XR chest 1V portable CLINICAL HISTORY: follow up ptx TECHNIQUE: An X-ray image of the chest is obtained in AP projection. COMPARISON: 10/01/2023 CR and 05/17/2024 PET/CT FINDINGS: Pulmonary Parenchyma: Small apical left radiolucency measuring less than 10mm in thickness with bronchovascular markings seen byeond it, likely related to apical lung scarring with atelectatic band rather than residual small pneumothorax. Clinical correlation and follow-up x-ray is advised Left-sided chest drain is seen with its tip projecting over the left mid lung zone Prominent bronchovascular markings bilaterally more on the right lower lung zone with faint peribronchial cuffing suggesting congestion Otherwise, Lungs are clear bilaterally. No evidence of consolidation, collapse, or focal opacities. No pulmonary nodules are identified. No evidence of pleural effusion or pleural thickening. Heart and Mediastinum: Heart size and shape are normal. No mediastinal widening or masses. No hilar or mediastinal lymphadenopathy. Bony Thorax: cortical irregularities in the right eighth rib laterally and possibly due to old fracture Soft Tissues: Soft tissues overlying the chest wall are unremarkable. IMPRESSION: 1. Small apical left radiolucency measuring less than 10mm in thickness with bronchovascular markings seen byeond it, likely related to apical lung scarring with atelectatic band rather than residual small pneumothorax. Clinical correlation and follow-up x-ray is advised. New 2. Left-sided chest drain is seen with its tip projecting over the left mid lung zon. Newcortical irregularities in the right eighth rib laterally and possibly due to old fracture. Stable 3. Prominent bronchovascular markings bilaterally more on the right lower lung zone with faint peribronchial cuffing suggesting congestion. Stable Electronically signed by Irvin Joy 05-25-2024 07:46 AM
--- NOTE | 2024-05-25 08:25 | Procedure Note ---
Procedure Note Date of Service May 25, 2024 Left apical chest tube removal Chest x-ray was evaluated this morning after clamping of the chest tube and there was no evidence of residual pneumothorax. Dressing was taken down from the left chest tube insertion site. No active bleeding was seen. Chest tube was removed upon the patient exhaling. Chest tube was found to be completely intact and an occlusive dressing was placed with the use of Xeroform dressing and an OptiForm dressing. This should be left out for 48 hours and then removed. Avoid strenuous activity for the next month to help reduce the risk of recurrent pneumothorax. [facility] Procedure Codes (Charges) Pulmonary/Thoracic Procedure 1: Pulmonary and Thoracic: 97053 Remove lung catheter Coding CPT Codes Pulmonary/Thoracic - Pulmonary and Thoracic: 18188 Remove lung catheter ([id number]) Additional Codes Date of Service (PG.SURGERY)
--- NOTE | 2024-05-25 08:27 | Pulmonology Progress Note ---
Date of Service May 25, 2024 Assessment & Plan (1) Pneumothorax, left: Plan: Patient's status post robotic navigational bronchoscopy with a left-sided pneumothorax post procedure 05/24/2024. Left-sided pigtail catheter removed this morning without issue after clamping overnight. (2) Multiple pulmonary nodules determined by computed tomography of lung: Plan: Status post robotic navigational bronchoscopy with sampling of the left upper and right upper lobe lung nodules which revealed PET avid. Nodules are currently indeterminate, but suspicious in light of the patient's remote smoking history and history of prostate cancer. Anticipate biopsy results to be available in the next 48 to 72 hours. Plan Patient stable for discharge from pulmonary perspective. Will need outpatient follow-up with Dr. Short. Thank you for the consult. Pulmonary to sign off. Admission and Anticipated Discharge Date Admission Date: May 24, 2024 Subjective Patient noted a small amount of hemoptysis this morning. Per nursing note he became tacky when walking around and possibly in an SVT with resolution of symptoms sitting down. Patient denies any significant shortness of breath or chest pain at present. Does endorse some mild pleurisy with deep breathing. Review of Systems Review of Systems: All systems reviewed & are unremarkable except as noted in HPI & below Physical Exam Constitutional: WD/WN, vitals as above Neck: trachea midline, no thyromegaly Respiratory: normal respiratory effort, lungs clear to auscultation Cardiovascular: RRR, no murmur, no edema Gastrointestinal (Abdomen): normal bowel sounds, soft, nontender, no hepatosplenomegaly Musculoskeletal: Extremities: extremities normal to inspection Skin: no rashes, warm and dry Lymphatic: no cervical lymphadenopathy Results & Data Results & Data Vital Signs (Past 12 Hours) Vital Signs Temp Pulse Pulse Pulse Resp BP Pulse Ox 05/25/24 08:00 36.5 C 77 16 164/94 H 97 05/25/24 06:59 72 05/25/24 02:34 37.2 C 76 18 156/74 H 98 05/24/24 22:25 37.2 C 76 18 154/74 H 95 05/24/24 21:56 05/24/24 21:51 76 O2 Del Method O2 Flow Rate 05/25/24 08:00 Room Air 05/25/24 06:59 05/25/24 02:34 Nasal Cannula 1 05/24/24 22:25 Room Air 05/24/24 21:56 Room Air 05/24/24 21:51 PG Care Time/CCT Total # of Minutes Spent Total Time Spent with Patient: Total time spent is greater than 50% in coordination of care (as documented) at patient's floor/unit and/or counseling patient: Coding Level of Care Code 70225 SUB INP/OBS CARE 03/19MIN Diagnoses Pneumothorax, left J93.9 Multiple pulmonary nodules determined by computed tomography of lung R91.8
--- NOTE | 2024-05-25 13:03 | Hospitalist Progress Note ---
Date of Service May 25, 2024 Assessment & Plan (1) PSVT (paroxysmal supraventricular tachycardia): (2) Pneumothorax, left: (3) Lung nodule: (4) Hyperlipidemia: (5) Gastroesophageal reflux disease: (6) Compression fracture of T12 vertebra with routine healing: (7) Hypertension: Plan 78yo male with history of multiple pulmonary nodules (2ml BEATRICE nodule, 12mm RUL nodule) for which he presented for bronchoscopy with biopsy on 05/24/[address] Jacinto Short. Unfortunately the procedure was complicated by a left-sided pneumothorax requiring placement of chest tube. #Left-sided pneumothorax - Developed such post bronchoscopy/biopsy; chest tube placed 05/24 pneumothorax resolved on imaging this AM; chest tube removed by Dr Myles O2 sats wnl since chest tube removal and he has no dyspnea/COOPER #Multiple pulmonary nodules - - 2 mm left upper lobe, 12 mm right upper lobe S/p bronchoscopy and FNA biopsy 05/24/24 Pathology pending #Paroxysmal narrow complex tachycardia - - 2:1 a.flutter suspected - care d/w Dr Seaman from [facility] who will provide consultation - start metoprolol tartrate 25mg BID - obtain echo - check mag level - TSH 02/2024 wnl - suspect he has been having runs of this at home per his description (see subjective portion of note) - cont tele monitoring at least overnight - if he has a sustained tachycardia obtain 12-lead EKG if possible - hold off on systemic anticoagulation at this time in light of recent pulmonary nodule biopsies & chest tube placement #Hypertension - - cont amlodipine - adding metoprolol tartrate as above #History of prostate cancer s/p radiation #Hyperlipidemia - Continue statin #H/O T12 compression fracture Admission and Anticipated Discharge Date Admission Date: May 24, 2024 Subjective events of last 24 hours noted patient had left sided chest tube removed this am denies any dyspnea or COOPER related to the recent pneumo on tele overnight/this AM has had several runs of narrow complex tachycardia at least 2 episodes were 5-6 minutes in duration with several runs 1 minute or less rate during 1 episode stayed at 145 BPM another episode occurred while ambulating and he was in the 170s rhythm strips reviewed - appears to be 2:1 a.flutter unfortunately, by the time EKG was obtained, he had already converted back to NSR patient reports that with his episodes today he can tell something is mildly "off" he calls it a "numby feeling" in his chest when he is tachycardic he does have mild dyspnea when he has the tachycardia denies chest pain denies actual palpitations he reports that about a year ago he had a fall that was preceded by the same "numby" feeling in his chest with dyspnea since then, perhaps 1x/week, he has brief episodes of the chest "numby feeling" and the dyspnea; each spell lasts about 1-2 min then self-resolves no a.fib/flutter history to his knowledge was scheduled for Lexiscan nuclear stress test tomorrow which was ordered in preparation for his bronchoscopy that he had had yesterday as well as chest CT imaging showing coronary calcifications Review of Systems Review of Systems: CV - no chest pain, orthopnea, edema pulm - no COOPER; minimal dyspnea during runs of presumed a.flutter GI - no abd pain or N/V gen - eating w/o difficulty psych - slept poorly last pm Physical Exam Physical Exam: gen - pleasant male in NAD neck - no JVD mouth - MMM chest - dressing intact just below the L clavicle heart - RRR, s1 s2, no murmur lungs - CTA b/l, no rales, no wheezing abd - soft NT ND BS+ ext - no edema, pulses b/l feet 2+ Results & Data Results & Data Vital Signs (Past 12 Hours) Vital Signs Temp Pulse Pulse Pulse Resp BP Pulse Ox 05/25/24 12:25 36.6 C 82 16 152/88 H 93 05/25/24 10:18 159/76 H 05/25/24 09:36 36.5 C 77 76 16 164/94 H 97 05/25/24 08:00 36.5 C 77 16 164/94 H 97 05/25/24 07:50 05/25/24 06:59 72 05/25/24 02:34 37.2 C 76 18 156/74 H 98 O2 Del Method O2 Flow Rate 05/25/24 12:25 Room Air 05/25/24 10:18 05/25/24 09:36 05/25/24 08:00 Room Air 05/25/24 07:50 Room Air 05/25/24 06:59 05/25/24 02:34 Nasal Cannula 1 Laboratory Results Laboratory Results - last 24 hr 05/25/24 05:43 WBC 11.15 H RBC 4.42 L Hgb 14.4 Hct 41.6 L MCV 94.1 MCH 32.6 MCHC 34.6 RDW Std Deviation 41.9 RDW Coeff of [place] 11.9 Plt Count 298 MPV 9.6 Immature Gran % (Auto) 0.3 Neut % (Auto) 83.8 Lymph % (Auto) 9.7 [place] % (Auto) 5.7 Eos % (Auto) 0.2 Baso % (Auto) 0.3 Neut # (Auto) 9.35 H Lymph # (Auto) 1.08 L [place] # (Auto) 0.64 H Eos # (Auto) 0.02 Baso # (Auto) 0.03 Immature Gran # (Auto) 0.03 Sodium 135 L Potassium 4.1 Chloride 101 Carbon Dioxide 29 Anion Gap 5 BUN 11 Creatinine 0.68 Est Cr Clr Drug Dosing 75.4 eGFR 95.74 BUN/Creatinine Ratio 16.2 Glucose 117 H Calcium 8.7 Diagnostic Findings Chest X-Ray 05/25/24 07:00 EXAM: XR chest 1V portable CLINICAL HISTORY: follow up ptx TECHNIQUE: An X-ray image of the chest is obtained in AP projection. COMPARISON: 10/01/2023 CR and 05/17/2024 PET/CT FINDINGS: Pulmonary Parenchyma: Small apical left radiolucency measuring less than 10mm in thickness with bronchovascular markings seen byeond it, likely related to apical lung scarring with atelectatic band rather than residual small pneumothorax. Clinical correlation and follow-up x-ray is advised Left-sided chest drain is seen with its tip projecting over the left mid lung zone Prominent bronchovascular markings bilaterally more on the right lower lung zone with faint peribronchial cuffing suggesting congestion Otherwise, Lungs are clear bilaterally. No evidence of consolidation, collapse, or focal opacities. No pulmonary nodules are identified. No evidence of pleural effusion or pleural thickening. Heart and Mediastinum: Heart size and shape are normal. No mediastinal widening or masses. No hilar or mediastinal lymphadenopathy. Bony Thorax: cortical irregularities in the right eighth rib laterally and possibly due to old fracture Soft Tissues: Soft tissues overlying the chest wall are unremarkable. IMPRESSION: 1. Small apical left radiolucency measuring less than 10mm in thickness with bronchovascular markings seen byeond it, likely related to apical lung scarring with atelectatic band rather than residual small pneumothorax. Clinical correlation and follow-up x-ray is advised. New 2. Left-sided chest drain is seen with its tip projecting over the left mid lung zon. Newcortical irregularities in the right eighth rib laterally and possibly due to old fracture. Stable 3. Prominent bronchovascular markings bilaterally more on the right lower lung zone with faint peribronchial cuffing suggesting congestion. Stable Electronically signed by Irvin Joy 05-25-2024 07:46 AM PG Care Time/CCT Total # of Minutes Spent Total Time Spent with Patient: Total time spent is greater than 50% in coordination of care (as documented) at patient's floor/unit and/or counseling patient: Coding Level of Care Code 75685 SUB INP/OBS CARE 3/50MIN Diagnoses PSVT (paroxysmal supraventricular tachycardia) I47.10 Pneumothorax, left J93.9 Lung nodule R91.1 Hyperlipidemia E78.5 Gastroesophageal reflux disease K21.9 Compression fracture of T12 vertebra with routine healing S22.080D Hypertension I10
[2024-05-25] MEDS: METOPROLOL TARTRATE 25 MG TAB PO SCH (13:28)
--- NOTE | 2024-05-25 13:56 | Electrocardiogram Report ---
Test Reason : Blood Pressure : */* mmHG Vent. Rate : 84 BPM Atrial Rate : 84 BPM P-R Int : 226 ms QRS Dur : 76 ms QT Int : 362 ms P-R-T Axes : 70 6 64 degrees QTcB Int : 427 ms Sinus rhythm with 1st degree A-V block with Premature supraventricular complexes Otherwise normal ECG When compared with ECG of 16-May-2024 11:02, Premature supraventricular complexes are now Present Confirmed by Diego Seaman ([id number]) on 05/25/2024 1:56:40 PM Referred By: Isaak Short Confirmed By: Diego Seaman
--- NOTE | 2024-05-25 14:26 | XCELERA ---
[id number] \\[email or web address]\[id number]
--- NOTE | 2024-05-25 15:34 | Cardiology Consultation ---
Date of Consultation May 25, 2024 Assessment & Plan (1) PSVT (paroxysmal supraventricular tachycardia): (2) Coronary artery calcification: (3) Hypertension: (4) Multiple pulmonary nodules determined by computed tomography of lung: Plan 78-year-old man with incidentally noted coronary calcifications and no prior cardiac history developed paroxysmal supraventricular tachycardia today after lung biopsy/pneumothorax with chest tube yesterday. The fact that he tolerated this very well with no anginal symptoms or dyspnea suggest that he has no significant occlusive coronary artery disease, making a near-term stress study unnecessary. Rate near 150 bpm and review of the tracings suggest that the dysrhythmia is atrial flutter with 2 1 conduction, however if possible we will obtain twelve- lead ECG to confirm should he have any sustained episodes. Agree with initiation of low-dose beta-ama (metoprolol tartrate 25 mg twice daily), titration based on frequency of dysrhythmia recurrence, heart rate, and blood pressure. No immediate need for anticoagulation and significant relative contraindication (recent chest tube). Longer-term decision on anticoagulation could be determined later based on further rhythm analysis and frequency of rhythm recurrence. Since his blood pressure has been running mildly hypertensive, reasonable to continue amlodipine for now. However, as metoprolol titrate upward may need to hold this if low normal or hypotensive blood pressures noted. As noted, patient had seen Dr. Stevenson before, he will be following up with the patient tomorrow. History of Present Illness Reason for Consultation: tachyarrhythmia Requesting Physician: Malick Lau MD Attending Physician: Malick Lau MD History of Present Illness 78-year-old man with history of coronary artery calcifications, no other cardiac history, who underwent robotic bronchoscopy and nodule biopsy yesterday, subsequently admitted after left-sided chest tube placed for pneumothorax, today he had several runs of atrial tachydysrhythmia. Patient was seen by Dr. Stevenson on 05/16/2024 for preoperative evaluation prior to his biopsy. As noted, his only history is coronary calcifications and a stress study was planned, however he underwent the biopsy before this could be performed. As he noted during his visit with Dr. Stevenson, he does not have anginal type or exertional symptoms but sometimes has mild chest tightness in the morning when he awakens. He also notes mild dyspnea on exertion but no orthopnea, PND, or leg edema. He does exercise regularly and hunts mushrooms in the wild and notes no lifestyle limiting symptoms. Of note, when he developed the tachydysrhythmia with heart rates of up to 145 bpm he noted only a mild "funny" sensation in his chest but no anginal type ches t discomfort, dyspnea, subjective palpitations, or lightheadedness. Telemetry showed irregular rhythm at 145 bpm suggestive of but not conclusive for atrial flutter. These episodes lasted only a minute or so at a time, he has been predominantly in sinus rhythm at 70-80 bpm. At the time my evaluation this afternoon, he had no somatic complaints. He is left-sided chest tube was removed earlier today. Allergies Allergy/AdvReac Type Severity Reaction Status Date / Time house dust mite Allergy Mild Seasonal Verified 05/24/24 06:40 tree and shrub pollen Allergy Mild Seasonal Verified 05/24/24 06:40 wool Allergy Mild Nose runs Verified 05/24/24 06:40 Home Medications Medication Instructions Recorded Confirmed Type cholecalciferol (vitamin D3) 50 50 mcg PO QPM 09/05/20 05/24/24 History mcg (2,000 unit) capsule Medical Marijuana 1 inh inhalation UD PRN hs 08/23/21 05/24/24 History cyanocobalamin (vitamin B-12) 1,000 mcg PO QPM 09/02/21 05/24/24 History 1,000 mcg tablet omeprazole 20 mg capsule,delayed 20 mg PO QPM 09/02/21 05/24/24 History release nitroglycerin 2 % transdermal 1 inch transdermal BID PRN pain 02/10/22 05/24/24 Rx ointment toe #30 grams omega-3 fatty acids 1,000 mg 1,000 mg PO QAM 04/22/23 05/24/24 History capsule psyllium husk 3.4 gram/5.4 gram 2 tsp PO DAILY 04/22/23 05/24/24 History oral powder (Metamucil) naproxen 500 mg tablet 500 mg PO BID PRN pain #60 tabs 05/20/23 05/24/24 Rx simvastatin 40 mg tablet 40 mg PO HS #90 tabs 06/08/23 05/24/24 Rx aspirin 81 mg capsule 81 mg PO QAM 09/29/23 05/24/24 History metronidazole 0.75 % topical cream 1 applic topical BID 01/28/24 05/24/24 History amlodipine 2.5 mg tablet 2.5 mg PO QAM #90 tabs 02/15/24 05/24/24 Rx fluticasone propionate 50 1 spray intranasal BID #18.2 mL 05/03/24 05/24/24 Rx mcg/actuation nasal spray,suspension (Flonase Allergy Relief) levocetirizine 5 mg tablet (Xyzal) 5 mg PO QPM 05/13/24 05/24/24 History pseudoephedrine HCl 60 mg tablet 60 mg PO Q6H PRN Cold Symptoms 05/13/24 05/24/24 History Patient History Medical History Nasal drainage "chronic" Compression fracture of thoracic vertebra Lumbar MRI 09/2023: Redemonstration of the subacute compression fracture at T12 as described above Elevated PSA GERD (gastroesophageal reflux disease) Restless leg syndrome Peripheral neuropathy Hypertension Hyperlipidemia Lung nodule reason for procedure Medical marijuana use History of prostate cancer s/p radiation tx Insomnia reason for medical marijuana Surgical History History of carpal tunnel release right History of colonoscopy History of nasal cauterization as child [place] teeth extracted H/O prostate biopsy H/O: vasectomy Hx of tonsillectomy Family History Aunt Colon cancer Brother Coronary heart disease Myocardial infarction Mother Family history of diabetes mellitus Coronary heart disease Father Coronary heart disease Brother Cancer Prostate Cancer Other No family history of adverse response to anesthesia Denies family history of Ovarian cancer Prostate cancer Breast cancer Social History Smoking Status: Former smoker Tobacco Type: Cigarettes Smoking End Date: "in my 30's"; Second Hand Exposure: Yes (in the past, used to smoke); Do You Dip or Chew Tobacco: No; Hx Alcohol Use: Yes Alcohol type: beer and wine Alcohol Intake Frequency: 4 or More x per/Week Hx Substance Use: Yes Prescribed Medications: Marijuana Substance Use Type Other:: medical card Preferred Language: Japanese Communication Ability: Effective Visual Impairment: No Limitations Hearing Ability: Normal Legal Entity Controller Required: No Beliefs That Will Affect Care: None marital status: Current Living Situation: Spouse current occupational status: retired Feels Safe at Home: Yes Safety Concerns: Feels Safe At This Time Diet: regular caffeine: Yes during the past year weight has: remained stable Physical Activity Frequency: Daily Seatbelt Use: always Assistive Devices: Walker Physical Exam Physical Exam: Early white male appears comfortable. Afebrile. BP 154/76 mmHg. Pulse 32 bpm and regular. Respirations 16 unlabored. Skin: no ecchymoses or generalized lesions. HEENT: unremarkable. Neck: JVP at the clavicle at 90 degrees, no carotid bruits. Chest: Bandage left chest. Lungs: clear and equal breath sounds bilaterally. Cardiac: regular rhythm, normal S1-2, no murmur. Abdomen: benign. Extremities: no edema, pulses intact. Neurologic: normal affect and conversation, nonfocal. Results & Data Laboratory Results WBC 11.15, normal hemoglobin and platelet count. Sodium 135, potassium 4.1, BUN 11, creatinine 0.68. Diagnostic Findings Chest x-ray today showed small left pneumothorax versus apical lung scarring with atelectasis, left-sided chest tube, prominent bronchovascular markings. ECG today showed sinus rhythm with first-degree AV block and occasional PACs, otherwise unremarkable. Compared with 05/12/2024 study, PACs are new, no change otherwise. Echocardiogram today showed EF 55 to 60% with moderate LVH and normal wall motion, mildly dilated RV with normal function, mild TR with mild pulmonary hypertension. PG Care Time/CCT Total # of Minutes Spent Total Time Spent with Patient: Total time spent is greater than 50% in coordination of care (as documented) at patient's floor/unit and/or counseling patient: Coding Level of Care Code 92774 IN/OBS CONSULT LVL 4,60M Diagnoses PSVT (paroxysmal supraventricular tachycardia) I47.10 Coronary artery calcification I25.10 Hypertension I10 Multiple pulmonary nodules determined by computed tomography of lung R91.8
[2024-05-25] MEDS: MELATONIN 3 MG TAB PO PRN (20:09)
[2024-05-26 06:55] LABS: BUN Creatinine Ratio 19.4 (10-20); Calcium 9.2 mg/dl (8.6-10.3); Creatinine Clr Calc Pharmacy 70.5 ml/min; Potassium 4.8 mmol/L (3.5-5.1)
[2024-05-26 11:20] VITALS: RESP 16
[2024-05-26 15:18] VITALS: BP 163/89; PULSE 73; TEMP 98.2; O2SAT 97
--- NOTE | 2024-05-26 17:47 | Discharge Summary ---
Discharge Summary Date of Service May 26, 2024 Principal Dx & Hospital Course #1 = Principal Diagnosis (1) PSVT (paroxysmal supraventricular tachycardia): (2) Pneumothorax, left: (3) Lung nodule: (4) Hyperlipidemia: (5) Gastroesophageal reflux disease: (6) Compression fracture of T12 vertebra with routine healing: (7) Hypertension: Plan 78yo male with history of multiple pulmonary nodules (2ml BEATRICE nodule, 12mm RUL nodule) for which he presented for bronchoscopy with biopsy on 05/24/[address] Jacinto Short. Unfortunately the procedure was complicated by a left-sided pneumothorax requiring placement of chest tube. #Left-sided pneumothorax - Developed such post bronchoscopy/biopsy; chest tube placed 05/24 pneumothorax resolved on imaging; chest tube removed by Dr Myles 05/25 O2 sats wnl since chest tube removal and he has no dyspnea/COOPER #Multiple pulmonary nodules - - 2 mm left upper lobe, 12 mm right upper lobe S/p bronchoscopy and FNA biopsy 05/24/24 Pathology benign or nondiagnostic, follow up with Dr. Short #Paroxysmal narrow complex tachycardia - - had some short runs of PSVT with rate 150. Possibly aflutter - TTE without sig valvular disease, EF 55-60% - TSH was normal in February - cardiology consulted, discussed briefly with Dr. Stevenson today - started metoprolol - tolerating, increased dose at discharge - hold off on systemic anticoagulation at this time in light of recent pulmonary nodule biopsies & chest tube placement, consider on follow up depending on clinical course. If it is aflutter, CHADS2-Vasc is 3. Resume ASA. - follow up cardiology clinic #Hypertension - - replaced amlodipine with metoprolol #History of prostate cancer s/p radiation #Hyperlipidemia - Continue statin #H/O T12 compression fracture Admission HPI Per Admitting Provider Colby is a 78-year-old male with a past medical history of a pulmonary nodule for which he presented for bronchoscopy and biopsy, hypertension/hyperlipidemia without history of CAD/CVA/CHF, no history of renal disease, prostate cancer s/p radiation on medical marijuana for some residual discomfort but without recurrent LUTS symptoms, GERD,who is admitted for L pneumothorax. Seen in PACU. s/p robotic bronchoscopy and nodule biopsy. Admitted for monitoring post chest tube placement for associated left sided pneumo. At bedside recovering well from anesthesia. He reports he has some slight pain at the chest tube site noticeable slightly with deep inspiration but otherwise pain is well-controlled. No anterior chest pain. No preceding chest pain prior to his procedure. Denies fever chills or sweats. He endorses some minimal dyspnea but notes this is more a feeling of discomfort from the pain when taking a deep breath. He is not dyspneic with normal breaths. No lightheadedness or dizziness. No abdominal pain. Has a slight cough nonproductive and denies hemoptysis. Meds: - Amlodipine, took this AM - Simvastatin for cholesterol - Xyzal for allergies - Aspirin 81mg, did not take this morning. Takes this for primary prevention. No history of VT or CVA. No history of VT, DM2, CKD, CVA Denies medication allergies No tobacco use currently. Former smoker in 20-30s. 1ppd ~10 years total Medical marijuana use. No recreational drug use Hx prostate cancer post radiation. No difficulty with retention. Uses medical marijuana since which works well for minimal discomfort Intermittent hyperglycemia with last A1c 5.4% and no history of DM presented for bronchoscopy and was admitted for observation following a left sided pneumothorax. Surrogate DM: Jacki Branch ([place]) [phone] CODE STATUS: Full Code. Discussed w/ pt at bedside in PACU. Reports would not want prolonged intubation past 7 days if no signs of significant recovery or return of ability to communicate. Discharge Plan Discharge Items Patient Disposition: Home - Self-Care Reason For Visit: Pulmonary Nodule Discharge Diagnosis: Pulmonary nodule, postprocedural pneumothorax, PSVT possibly a-flutter Activity: Per Instructions section Non-emergency contact: Primary Care Provider, Behavioral Instructor and Protection Agent Call non-emergency contact if: you have any medication questions and your symptoms worsen Follow-up/Referrals: Pro,Gary Perez MD [Primary Care Provider] - 06/02/24 11:00 am (APPT. WITH Aylin RAM PA-C) Diet: Regular Addtl Attending Provider Instructions: You had pneumothorax from the biopsy procedure, which has resolved If you develop chest pain or shortness of breath seek immediate medical attention Follow up with Dr. Short for biopsy results We detected a few episodes of fast heart beat, which was asymptomatic The [place] recommended medication called metoprolol, which can slow down fast heart rates and may help keep you in normal rhythm. This medicine also works to lower blood pressure, so we will stop the amlodipine. Follow up with cardiology clinic It was a pleasure taking care of you in the hospital, Joanna James MD Pending Studies at Discharge: No Stand-Alone Forms: My [facility] Medications and DC Order Prescriptions: New metoprolol tartrate 50 mg tablet 50 mg PO BID Qty: 60 0RF Continued Metamucil 3.4 gram/5.4 gram powder 2 tsp PO DAILY Rx Instructions: mix into at least 4 oz water or juice before administering cholecalciferol (vitamin D3) 50 mcg (2,000 unit) capsule 50 mcg PO QPM omega-3 fatty acids 1,000 mg capsule 1,000 mg PO QAM nitroglycerin 2 % ointment 1 inch TD BID PRN (Reason: pain toe) Qty: 30 0RF Patient Comments: only uses in the winter months. Rx Instructions: administer 2 doses/day (approx. 6 hrs apart); remove for 10-12 hrs per 24 hours simvastatin 40 mg tablet 40 mg PO HS Qty: 90 3RF Medical Marijuana 1 inh inhalation UD PRN (Reason: hs) aspirin 81 mg capsule 81 mg PO QAM naproxen 500 mg tablet 500 mg PO BID PRN (Reason: pain) Qty: 60 0RF fluticasone propionate [Flonase Allergy Relief] 50 mcg/actuation spray,suspension 1 spray intranasal BID Qty: 18.2 2RF Rx Instructions: administer into each nostril metronidazole 0.75 % cream 1 applic topical BID cyanocobalamin (vitamin B-12) 1,000 mcg tablet 1,000 mcg PO QPM omeprazole 20 mg capsule,delayed release(DR/EC) 20 mg PO QPM pseudoephedrine HCl 60 mg Tablet 60 mg PO Q6H PRN (Reason: Cold Symptoms) levocetirizine [Xyzal] 5 mg Tablet 5 mg PO QPM Discontinued amlodipine 2.5 mg tablet 2.5 mg PO QAM Qty: 90 3RF Discharge Orders: Discharge Order (Routine); Ordered 05/26/24 Ordered By: Joanna Garcia/Other Patient Handouts: Pneumothorax (Collapsed Lung), ED Pulmonary Nodule, Solitary Admission Data Admit Date/Time: 05/24/24 11:39 Attending Provider: Joanna James Admit Provider: Isaak Short Primary Care Provider: Gary Wells Other Providers: Aman Myles; Diego Seaman Other Interventions: Discharge Summary Assessment (RN) Last Done: 05/26/24 15:59 Hospital Stay Data Consultations 05/24/24 12:37 Consult Pulmonology Routine 05/25/24 13:23 Consult Cardiology Routine Procedures Performed Operation Date: 05/24/24 07:30 Actual Procedures p Robotic Navigational Bronchoscopy, Bronchoalveolar Lavage, Bronchial Brushings, and Biopsy (Not Applicable) - Isaak Short MD s Endobronchial Ultrasound(Not Applicable) - Isaak Short MD Diagnostic Imagining Performed 05/24/24 [place] bronchoscopy Routine Pending Results Patient Have Any Pending Studies at Discharge: No Discharge Instructions Given to Patient (Per Discharging Provider) You had pneumothorax from the biopsy procedure, which has resolved If you develop chest pain or shortness of breath seek immediate medical attention Follow up with Dr. Short for biopsy results We detected a few episodes of fast heart beat, which was asymptomatic The [place] recommended medication called metoprolol, which can slow down fast heart rates and may help keep you in normal rhythm. This medicine also works to lower blood pressure, so we will stop the amlodipine. Follow up with cardiology clinic It was a pleasure taking care of you in the hospital, Joanna James MD Total Time Total Time Spent Total Time Spent (In Minutes): <30 Coding Level of Care Code 82062 IN/OBS DISCH 30 MIN/LESS Diagnoses PSVT (paroxysmal supraventricular tachycardia) I47.10 Pneumothorax, left J93.9 Lung nodule R91.1 Hyperlipidemia E78.5 Gastroesophageal reflux disease K21.9 Compression fracture of T12 vertebra with routine healing S22.080D Hypertension I10
--- NOTE | 2024-05-27 13:42 | Coding Query ---
CODING QUERY To promote full compliance with coding requirements relating to patient care, provider participation is requested in all cases of data sme uncertainty. Please assist us with the question(s) below: Coding Question(s): Patient was treated for a pneumothorax. Please clarify if this is a postprocedural pneumothorax or other. Physician's Response(s): ( x ) Pneumothorax, postprocedural ( ) Pneumothorax, due to ( ) Pneumothorax, NOS Thank you Dory Joy Principal Diagnosis: "that condition established after study, to be chiefly responsible for occasioning the admission of the patient to the hospital for care." Co-Existing Principal Diagnosis: "when two or more diagnoses equally meet the criteria for principal diagnosis as determined by the circumstances of admission, diagnostic work up, and/or therapy provided, and the Alphabetic Index, Tabular List, or another coding guideline does not provide sequencing direction, any one of the diagnoses may be sequenced first." "When the physician has documented what appears to be a current diagnosis in the body of the record, but has not included the diagnosis in the final diagnostic statement, the physician should be asked whether the diagnosis should be added." (Source Coding Clinic 2 QTR90. p3-4) FERNY
== END 2024-05-26 16:13 | disposition home or self-care (01) | DRG 167 ==
LOC: ASU 05:56 → SUATTDRO 11:39 → 2N 11:39